=== PATIENT | male | born 1975 | race Caucasian/White ===

== ENCOUNTER 2020-03-04 12:02 | Emergency (ER) | payer BC, SELFPAY ==
[2020-03-04 12:08] VITALS: BP 168/117; PULSE 75; RESP 14; TEMP 36.6; O2SAT 98
--- NOTE | 2020-03-04 12:13 | NUR.NOTE ---
Nursing Note: Spoke with Rachel from the [facility] and she stated that they did notify the escrow clerk and health officer of the animal bite. Addie Dukes
--- NOTE | 2020-03-04 12:41 | ED.GENADUL_ITS ---
Discharge Plan Disposition Patient Disposition: HOME Condition: Stable Discharge Details Chief Complaint: AnimalBite Clinical Impression: Dog bite, Rabies, need for prophylactic vaccination against Primary Care Provider: None,None ED Provider: Candi Arvizu Home Meds and New Rx's Prescriptions: No Action omeprazole 20 mg Capsule,Delayed Release(Dr/Ec) 20 mg PO RF: 0 Discharge Instructions Instructions: Rabies Immune Globulin (Injection), Animal Bite (ED), Rabies Vaccine (ED) Additional Instructions: Follow up with primary care provider in 3-5 days. Return to ED sooner if any worsening or concerns. Increase oral fluids. Please take Tylenol or Ibuprofen with food every 4-6 hours as needed for pain and swelling. Return to the ED or be seen sooner if any increased redness, swelling, drainage or pain to your hand. Take antibiotics as directed. A received with the first immunoglobulin injection in the first rabies vaccine. Recommendations are to have an additional vaccine and injection on days 3 and 7 post exposure. Stand Alone Forms: Work Release Referrals: Roseann Poole [NURSE PRACTITIONER] - Discharge Data Discharge Date/Time-TO BE ENTERED AT DEPARTURE: 03/04/20 14:42 Medical Decision Making 43-year-old male presents to the ER for a rabies immunoglobulin vaccination. S ent over here from [facility] and was seen by Roseann Poole earlier today. Patient was bit on the hand by a dog approximately 3 days ago, this was an unknown dog and ran off, she did give him a tetanus shot in clinic and started him on Clindamycin and doxy. She spoke with pharmacy and infusion center and sent patient here due to unavailable tetanus vaccine at [facility]. We do have this per Ms. Poole here in our pharmacy infusion center was unable to take patient at this time. Rabies vaccine ordered and rabies immunoglobulin ordered after speaking with pharmacy. Discussed with patient for strict return instructions if any increased redness or swelling or signs of infection. Instructed to get antibiotics immediately today. Discussed procedures for rabies vaccination and infiltration of immunoglobulin. Patient verbalized understanding. My area was infiltrated with immunoglobulin patient tolerated with difficulty complaining of pain. 1 mL of manual IV line was infiltrated in the soft tissues surrounding the right ring finger and the base. Patient received a centimeter lateral and IM to bilateral deltoids and received rabies vaccine prior to being discharged home. Patient does have another follow-up appointment for the remainder of the immunoglobulin on as discussed with Roseann Poole, PCP. HPI General Mode of arrival: ambulatory . Date/Time Provider Initiated Documentation: 03/04/20 12:41 . Limitations to Documentation: no limitations . Information obtained by: patient and old records reviewed . HPI Narrative: 43-year-old male presents to the ER for a rabies immunoglobulin vaccination. Sent over here from [facility] and was seen by Roseann Poole earlier today. Patient was bit on the hand by a dog approximately 3 days ago, this was an unknown dog and ran off, she did give him a tetanus shot in clinic and started him on Clindamycin and doxy. She spoke with pharmacy and infusion center and sent patient here due to unavailable tetanus vaccine at [facility]. We do have this per Zulema here in our pharmacy infusion center was unable to take patient at this time. Related Data Home Medications Medication Instructions Recorded Confirmed omeprazole 20 mg PO 03/04/20 Allergies Allergy/AdvReac Type Severity Reaction Status Date / Time penicillin V Allergy Mild Hives Unverified 03/04/20 13:49 General Stated Complaint: AnimalBite AISHA: 4 Review of Systems Narrative: Constitutional: Negative for weight loss, alert and oriented, well groomed, normal body habitus, appears comfortable. HEENT: Denies trauma, headaches, blurry vision, nasal discharge, sore throat, trouble swallowing. Chest: Denies chest pain, palpitations, irregular rhythm, hypertension. Respiratory: Denies Shortness of breath, cough, hemoptysis. GI: Denies abdominal pain, nausea, vomiting, diarrhea, constipation. : Denies dysuria, hematuria, flank pain, rectal bleeding. Neuro: Denies dizziness, blurry vision, weakness, syncope, headache or facial numbness. Hematologic: Denies easy bruising, intolerance to heat or cold, hair loss. [facility] Medical History (Updated 03/04/20 @ 14:15 by Italo Garcia) GERD (gastroesophageal reflux disease) (Chronic) Social History Smoking/Tobacco Use Status: Never Alcohol Intake: current Alcohol Intake frequency: 0-2 drinks per day Substance use type: does not use Exam Narrative Exam Narrative: Constitutional: Alert and oriented x3. Appears stated age. Normal body habitus. Head: Normocephalic, no trauma. Eyes: Pupils PERRLA, Red reflex noted, EOM's intact. Eyelids symmetrical without lesions, discharge, or swelling. ENT: Bilateral TM's WNL, External ear normal to inspection, no mastoid TTP, swelling, or erythema, Nasal turbinates WNL, no nasal discharge. Normal dentition, Posterior pharynx WNL, no exudate. Chest: RRR, Normal S1, S2, distal pulses intact. Resp: Lungs clear to auscultation bilaterally, no wheezes, rales, or rhonchi. Musculoskeletal: Normal gait, 5/5 strength to all four extremities. Skin: Does have a puncture wound noted to the base of the right ring finger does have mild surrounding erythema noted. Does have full range of motion noted to digit and can make a fist, no palmar tenderness palpated at this time. Capillary refill less than 2 sec. Neurologic: Cranial nerves II-XII intact. Alert and oriented x 3. DTR's intact. Hematologic/Lymphatic: No ecchymosis, no lymphadenopathy. Course Vital Signs Vital signs: Vital Signs Temperature 36.6 C 03/04/20 12:08 Pulse 75 03/04/20 12:08 Respiratory Rate 14 03/04/20 12:08 Blood Pressure 168/117 H 03/04/20 12:08 Pulse Oximetry 98 03/04/20 12:08 Temperature 36.6 C 03/04/20 12:08 Temperature Source Skin 03/04/20 12:08 Pulse 75 03/04/20 12:08 Respiratory Rate 14 03/04/20 12:08 Respiratory Effort 03/04/20 12:13 Blood Pressure 168/117 H 03/04/20 12:08 Blood Pressure Position Sitting 03/04/20 12:08 Pulse Oximetry 98 03/04/20 12:08 Oxygen Delivery Method Room Air 03/04/20 12:08 Oxygen Flow Rate 0 03/04/20 12:08 Pain Level 1 03/04/20 12:08
[2020-03-04] MEDS: Rabies Immune Globulin 300 UNIT/ML VIAL 2113.74 UNIT IM (13:58)
--- NOTE | 2020-03-04 14:16 | NUR.NOTE ---
patient received medication per MD order. patient being monitored for 30 minutes post injection. patient eating lunch and drinking fluids Nursing Note:
== END 2020-03-04 14:42 | disposition home or self-care (01) ==
PROVIDERS: Emergency Provider Registered Nurse Emergency
DX: S61.451A Open bite of right hand, initial encounter (principal); W54.0XXA Bitten by dog, initial encounter
CPT/HCPCS: 90471; 96372; 99284; 90675; 99283